=== PATIENT | male | born 1950 | race American Indian/Alaskan Native ===

== ENCOUNTER 2017-01-01 14:08 | Outpatient (CLI) | payer MEDICARE, OTHER | END 2017-01-01 14:09 | disposition home or self-care (01) | LOC: VAS 14:08 | PROVIDERS: ATTEND Internal Medicine | DX: M79.672 Pain in left foot (principal); R60.9 Edema, unspecified; I10 Essential (primary) hypertension; E78.00 Pure hypercholesterolemia, unspecified; Z87.891 Personal history of nicotine dependence ==

== ENCOUNTER 2018-07-11 08:32 | Outpatient (CLI) | payer MEDICARE, OTHER ==
[2018-07-11 10:39] LABS: Basophils # (Auto) 0.1 K/mm3 (0.0-0.1); Basophils % (Auto) 1.1 % (0.0-1.8); Eosinophils # (Auto) 0.3 K/mm3 (0.0-0.4); Eosinophils % (Auto) 4.2 % (0.0-4.3); Hematocrit 39.2 % (35.5-45.6); Hemoglobin 13.1 gm/dl (11.8-15.2); Lymphocytes # (Auto) 1.8 K/mm3 (1.2-5.4); Lymphocytes % (Auto) 26.9 % (13.4-35.0); Mean Corpuscular HGB Conc 33 % (32-34); Mean Corpuscular Volume 83 fl (84-94); Monocytes # (Auto) 0.7 K/mm3 (0.0-0.8); Monocytes % (Auto) 10.2 % (0.0-7.3); Platelet Count 204 K/mm3 (140-440); Red Blood Count 4.73 M/mm3 (3.65-5.03)
[2018-07-11 10:59] LABS: Alanine Aminotransferase 11 units/L (7-56); Albumin 3.8 g/dL (3.9-5); BUN/Creatinine Ratio 16; Blood Urea Nitrogen 14 mg/dL (9-20); Calcium 8.9 mg/dL (8.4-10.2); Hemolysis Index 3; LDL Cholesterol,Direct 93 mg/dL (50-130)
[2018-07-11 11:29] LABS: Chol/HDL Ratio 3.74 %; HDL Cholesterol 39 mg/dL (40-59)
== END 2018-07-11 08:33 | disposition home or self-care (01) ==
LOC: LAB 08:32
PROVIDERS: ATTEND Internal Medicine
DX: E11.9 Type 2 diabetes mellitus without complications (principal); I10 Essential (primary) hypertension; E88.81 Metabolic syndrome and other insulin resistance; E66.9 Obesity, unspecified; E78.00 Pure hypercholesterolemia, unspecified; M19.90 Unspecified osteoarthritis, unspecified site; Z87.891 Personal history of nicotine dependence
CPT/HCPCS: 36415; 80053; 80061; 83036; 85025

== ENCOUNTER 2018-09-15 10:08 | Outpatient (CLI) | payer MEDICARE, OTHER ==
--- NOTE | 2018-09-15 14:38 | Cat Scan Report ---
PROCEDURE: CT ABDOMEN PELVIS WO CON TECHNIQUE: CT of the abdomen and pelvis was performed. No IV or oral contrast administered. Axial ivania ges and coronal and sagittal reformatted images were obtained. HISTORY: MALIGNANT NEOPLASM OF PROSTATE, OTHER MICROSCOPIC HEMATURIA COMPARISON: None FINDINGS: The visualized lung bases are clear. There is cholelithiasis. 3.6 cm left and 2.3 cm right low-density renal lesions are likely cysts. There is no nephrolithiasis , hydronephrosis or other evidence for acute obstructive uropathy. Within the limitations of a noncontrast exam, the visualized liver, spleen, pancreas, adrenal glands demonstrate no significant abnormality. There are aortoiliac atherosclerotic calcifications. There is no abdominal aortic aneurysm. There is no evidence for intestinal obstruction. The appendix is normal. There is no abnormal fluid collection seen. There is no free intraperitoneal air. There is diverticulosis throughout the colon. There is no acute diverticulitis seen. Bladder is unremarkable. 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 IMPRESSION: 3.6 cm left and 2.3 cm right low-density renal lesions are not definitively characterized on noncontr ast imaging but are probably cysts. Cholelithiasis. There is no nephrolithiasis, hydronephrosis or other evidence for acute obstructive uropathy. Diverticulosis. No acute diverticulitis seen. This document is electronically signed by Cristina Nogueira MD., Sep 15 2018 02:36:19 PM ET
== END 2018-09-15 10:09 | disposition home or self-care (01) ==
LOC: CT 10:08
PROVIDERS: ATTEND Urology
DX: K80.20 Calculus of gallbladder without cholecystitis without obstruction (principal); K57.30 Diverticulosis of large intestine without perforation or abscess without bleeding; C61 Malignant neoplasm of prostate; I10 Essential (primary) hypertension; E78.00 Pure hypercholesterolemia, unspecified
CPT/HCPCS: 74176

== ENCOUNTER 2019-04-04 13:24 | Outpatient (CLI) | payer MEDICARE, OTHER ==
[2019-04-04 13:52] LABS: BUN/Creatinine Ratio 11; Blood Urea Nitrogen 12 mg/dL (9-20); Calcium 8.9 mg/dL (8.4-10.2); Chol/HDL Ratio 3.67 %; HDL Cholesterol 34 mg/dL (40-59); Hemolysis Index 3; LDL Cholesterol,Direct 85 mg/dL (50-130)
== END 2019-04-04 13:25 | disposition home or self-care (01) ==
LOC: LAB 13:24
PROVIDERS: ATTEND Internal Medicine
DX: E11.22 Type 2 diabetes mellitus with diabetic chronic kidney disease (principal); N18.1 Chronic kidney disease, stage 1; E78.5 Hyperlipidemia, unspecified
CPT/HCPCS: 36415; 80048; 80061; 83036

== ENCOUNTER 2019-10-04 11:21 | Outpatient (CLI) | payer MEDICARE, OTHER ==
--- NOTE | 2019-10-04 13:35 | Vascular Lab Report ---
DUPLEX DOPPLER LOWER EXTREMITY VEINS, BILATERAL INDICATION: R60.0 LOCALIZED EDEMA. TECHNIQUE: Duplex doppler imaging was performed through the veins of both lower extremities using venous raul jaden and other maneuvers. COMPARISON: None available. FINDINGS: Right Common femoral vein: Negative. Right Superficial femoral vein: Negative. Right Popliteal vein: Negative. Right Calf veins: Negative. Left Common femoral vein: Negative. Left Superficial femoral vein: Negative. Left Popliteal vein: Negative. Left Calf veins: Negative. Additional findings: None. IMPRESSION: Negative for DVT. Signer Name: Phu Brown MD Signed: 10/04/2019 1:31 PM Workstation Name: [id number]
== END 2019-10-04 11:22 | disposition home or self-care (01) ==
LOC: VAS 11:21
PROVIDERS: ATTEND Internal Medicine
DX: R60.0 Localized edema (principal)
CPT/HCPCS: 93970

== ENCOUNTER 2021-09-04 12:09 | Emergency (ER) | payer MEDICARE, OTHER ==
--- NOTE | 2021-09-04 19:04 | Emergency Department Report ---
ED Extremity Problem HPI - General Chief complaint: Extremity Injury, Lower Stated complaint: BILATERAL LEG PAIN Source: patient Mode of arrival: Ambulatory Limitations: No Limitations - History of Present Illness Initial comments: 71-year-old male presents to the ED with bilateral leg pain after a fall. Patient has rash noted to bilateral leg with purulent drainage noted. Patient is ambulatory. Patient states that he fell from a fall approximately 5 feet while painting his house . Patient denies any LOC. Patient has no obvious deformity noted.Patient has obvious edema noted with erythema noted to the bilateral leg. Patient states pain is a current 7 out of 10. Patient denies any prior medication. No distracting injury noted. Denies any fever or chills. No acute distress noted. No ill appearance noted. MD Complaint: extremity pain Onset/Timin -: days(s) Location: bilateral lower extremity Radiation: none Severity scale (0 -10): 7 Quality: aching Consistency: constant, intermittent Improves with: nothing Worsens with: nothing - Related Data Home Medications Medication Instructions Recorded Confirmed Last Taken Aspirin EC [Halfprin EC] 81 mg PO QDAY 06/06/14 03/03/16 07/31/14 Atorvastatin [Lipitor] 20 mg PO QHS 06/06/14 03/03/16 07/31/14 Chlorthalidone 25 mg PO DAILY 06/06/14 03/03/16 07/31/14 Dapagliflozin Propanediol [Farxiga] 10 mg PO DAILY 06/06/14 03/03/16 07/31/14 Insulin Aspart Protam & Aspart 40 unit SQ BID 06/06/14 03/03/16 07/31/14 [NovoLOG Mix 70-30 Flexpen] Metformin HCl [Glucophage] 1,000 mg PO BID 06/06/14 03/03/16 07/31/14 Olmesartan (Nf) [Benicar] 40 mg PO QDAY 06/06/14 03/03/16 07/31/14 Potassium Chloride 20 meq PO QDAY 06/06/14 03/03/16 07/31/14 Tramadol HCl [traMADol] 50 mg PO PRN PRN 06/06/14 03/03/16 07/31/14 amLODIPine 10 mg PO DAILY 06/06/14 03/03/16 07/31/14 carvediloL [Coreg] 25 mg PO BID 06/06/14 03/03/16 07/31/14 Previous Rx's Medication Instructions Recorded Last Taken Type Acetaminophen/Codeine [Tylenol 1 tab PO Q6H PRN 3 Days #12 tab 09/04/21 Unknown Rx /Codeine # 3 tab] cephALEXin [Keflex] 500 mg PO Q12HR 10 Days #20 cap 09/04/21 Unknown Rx Allergies Allergy/AdvReac Type Severity Reaction Status Date / Time No Known Allergies Allergy Verified 08/01/14 10:47 ED Review of Systems ROS: Stated complaint: BILATERAL LEG PAIN Other details as noted in HPI Constitutional: denies: chills, fever Eyes: denies: eye pain, eye discharge, vision change ENT: denies: ear pain, throat pain Respiratory: denies: cough, shortness of breath, wheezing Cardiovascular: denies: chest pain, palpitations Endocrine: no symptoms reported Gastrointestinal: denies: abdominal pain, nausea, diarrhea Genitourinary: denies: urgency, dysuria Musculoskeletal: denies: back pain, joint swelling, arthralgia Skin: rash. denies: lesions Neurological: denies: headache, weakness, paresthesias Psychiatric: denies: anxiety, depression Hematological/Lymphatic: denies: easy bleeding, easy bruising ED Past Medical Hx - Past Medical History Hx Hypertension: Yes (X 38 YRS) Hx Diabetes: Yes Hx Arthritis: Yes Hx Tuberculosis: Yes (POSITIVE SKIN TEST-HAD TX-THEN NEGATIVE CXR) - Social History Smoking Status: Former Smoker - Medications Home Medications: Home Medications Medication Instructions Recorded Confirmed Last Taken Type Aspirin EC [Halfprin EC] 81 mg PO QDAY 06/06/14 03/03/16 07/31/14 History Atorvastatin [Lipitor] 20 mg PO QHS 06/06/14 03/03/16 07/31/14 History Chlorthalidone 25 mg PO DAILY 06/06/14 03/03/16 07/31/14 History Dapagliflozin Propanediol [Farxiga] 10 mg PO DAILY 06/06/14 03/03/16 07/31/14 History Insulin Aspart Protam & Aspart 40 unit SQ BID 06/06/14 03/03/16 07/31/14 History [NovoLOG Mix 70-30 Flexpen] Metformin HCl [Glucophage] 1,000 mg PO BID 06/06/14 03/03/16 07/31/14 History Olmesartan (Nf) [Benicar] 40 mg PO QDAY 06/06/14 03/03/16 07/31/14 History Potassium Chloride 20 meq PO QDAY 06/06/14 03/03/16 07/31/14 History Tramadol HCl [traMADol] 50 mg PO PRN PRN 06/06/14 03/03/16 07/31/14 History amLODIPine 10 mg PO DAILY 06/06/14 03/03/16 07/31/14 History carvediloL [Coreg] 25 mg PO BID 06/06/14 03/03/16 07/31/14 History Acetaminophen/Codeine [Tylenol 1 tab PO Q6H PRN 3 Days #12 tab 09/04/21 Unknown Rx /Codeine # 3 tab] cephALEXin [Keflex] 500 mg PO Q12HR 10 Days #20 cap 09/04/21 Unknown Rx ED Physical Exam - General Limitations: No Limitations General appearance: alert, in no apparent distress - Head Head exam: Present: atraumatic, normocephalic - Eye Eye exam: Present: normal appearance - ENT ENT exam: Present: mucous membranes moist - Neck Neck exam: Present: normal inspection - Respiratory Respiratory exam: Present: normal lung sounds bilaterally. Absent: respiratory distress - Cardiovascular Cardiovascular Exam: Present: regular rate, normal rhythm. Absent: systolic murmur, diastolic murmur, rubs, gallop - GI/Abdominal GI/Abdominal exam: Present: soft, normal bowel sounds - Rectal Rectal exam: Present: deferred - Extremities Exam Extremities exam: Present: normal inspection, tenderness, joint swelling - Back Exam Back exam: Present: normal inspection - Neurological Exam Neurological exam: Present: alert, oriented X3 - Psychiatric Psychiatric exam: Present: normal affect, normal mood - Skin Skin exam: Present: warm, dry, intact, normal color. Absent: rash ED Course Vital Signs 09/04/21 12:30 Temperature 98.6 F Pulse Rate 79 Respiratory 18 Rate Blood Pressure 189/79 [Right] O2 Sat by Pulse 97 Oximetry ED Medical Decision Making - Medical Decision Making 71-year-old male presents to the ED with bilateral leg pain after a fall. Patient has rash noted to bilateral leg with purulent drainage noted. Patient is ambulatory. Patient states that he fell from a fall approximately 5 feet while painting his house . Patient denies any LOC. Patient has no obvious deformity noted.Patient has obvious edema noted with erythema noted to the bilateral leg. Patient states pain is a current 7 out of 10. Patient denies any prior medication. No distracting injury noted. Denies any fever or chills. No acute distress noted. No ill appearance noted. Rechecked the patient is resting quietly quietly and comfortable and feeling better. I discussed the results of diagnostic study, my clinical impression and the plan for further treatment with the patient. Patient agrees with plan and discharge at this present time. All question addressed. I have given the patient instruction regarding a diagnosis ,expectation ,follow- up and return precaution. I explained to the patient that emergent condition may arise and to return to the ED for new worsen and any new persisting condition. I have explained the importance of following up with the primary care physician or referral physician listed below has instructed. The patient verbalized understanding of discharge instruction. Critical care attestation.: If time is entered above; I have spent that time in minutes in the direct care of this critically ill patient, excluding procedure time. ED Disposition Clinical Impression: Cellulitis Qualifiers: Site of cellulitis: extremity Site of cellulitis of extremity: lower extremity Laterality: unspecified laterality Qualified Code(s): L03.119 - Cellulitis of unspecified part of limb Disposition: 01 HOME / SELF CARE / HOMELESS Is pt being admited?: No Does the pt Need Aspirin: No Condition: Stable Instructions: Cellulitis, Adult, [id number] Additional Instructions: Take medication as prescribed Follow-up with your primary care doctor Prescriptions: cephALEXin [Keflex] 500 mg PO Q12HR 10 Days #20 cap Acetaminophen/Codeine [Tylenol /Codeine # 3 tab] 1 tab PO Q6H PRN 3 Days #12 tab PRN Reason: Pain, Moderate (4-6) Referrals: KYLER BURNS MD [Staff Physician] - 3-5 Days Time of Disposition: 19:14
[2021-09-04 20:05] VITALS: BP 180/76
== END 2021-09-04 19:55 | disposition home or self-care (01) ==
LOC: ED 12:09
DX: L03.116 Cellulitis of left lower limb (principal); L03.115 Cellulitis of right lower limb; I10 Essential (primary) hypertension; E11.9 Type 2 diabetes mellitus without complications; M19.90 Unspecified osteoarthritis, unspecified site; Z79.899 Other long term (current) drug therapy; Z87.891 Personal history of nicotine dependence
CPT/HCPCS: 99282

== ENCOUNTER 2021-09-24 13:12 | Outpatient (CLI) | payer MEDICARE, OTHER ==
[2021-09-24 14:19] LABS: Alanine Aminotransferase 17 units/L (7-56); Albumin 3.9 g/dL (3.9-5); BUN/Creatinine Ratio 15; Blood Urea Nitrogen 15 mg/dL (9-20); Calcium 9.4 mg/dL (8.4-10.2); Hemolysis Index 9
== END 2021-09-24 13:13 | disposition home or self-care (01) ==
LOC: LAB 13:12
PROVIDERS: ATTEND Specialist
DX: E07.9 Disorder of thyroid, unspecified (principal); F02.80 Dementia in other diseases classified elsewhere, unspecified severity, without behavioral disturbance, psychotic disturbance, mood disturbance, and anxiety; I10 Essential (primary) hypertension
CPT/HCPCS: 36415; 80053; 82607; 83921; 84443; 86592

== ENCOUNTER 2021-11-05 09:08 | Outpatient (CLI) | payer MEDICARE, OTHER ==
[2021-11-05 12:32] LABS: Basophils # (Auto) 0.1 K/mm3 (0.0-0.1); Basophils % (Auto) 1.3 % (0.0-1.8); Eosinophils # (Auto) 0.3 K/mm3 (0.0-0.4); Eosinophils % (Auto) 4.9 % (0.0-4.3); Hematocrit 39.1 % (35.5-45.6); Hemoglobin 12.3 gm/dl (11.8-15.2); Lymphocytes # (Auto) 1.7 K/mm3 (1.2-5.4); Lymphocytes % (Auto) 26.3 % (13.4-35.0); Mean Corpuscular HGB Conc 31 % (32-34); Mean Corpuscular Volume 83 fl (84-94); Monocytes # (Auto) 0.7 K/mm3 (0.0-0.8); Monocytes % (Auto) 11.9 % (0.0-7.3); Platelet Count 229 K/mm3 (140-440); Red Blood Count 4.72 M/mm3 (3.65-5.03); Red Cell Distribution Width 15.1 % (13.2-15.2)
[2021-11-05 12:49] LABS: BUN/Creatinine Ratio 14; Blood Urea Nitrogen 15 mg/dL (9-20); Calcium 9.5 mg/dL (8.4-10.2); Hemolysis Index 4; Iron 47 ug/dL (49-181); Total Iron Binding Capacity 243 mcg/dL (250-450)
== END 2021-11-05 09:09 | disposition home or self-care (01) ==
LOC: LABHHL 09:08
PROVIDERS: ATTEND Internal Medicine
DX: E11.22 Type 2 diabetes mellitus with diabetic chronic kidney disease (principal); D64.9 Anemia, unspecified; N18.9 Chronic kidney disease, unspecified
CPT/HCPCS: 36415; 80048; 82728; 83036; 83550; 85025